=== PATIENT | male | born 1995 | race African-American/Black ===

== ENCOUNTER 2017-06-14 12:49 | Emergency (ER) | payer BC ==
[~2017-06-14] VITALS: Ht 185.4 cm; Wt 89.0 kg
[2017-06-14 12:53] VITALS: TEMP 36.9; Ht 185.4 cm; Wt 89.0 kg
[2017-06-14 13:55] VITALS: BP 145/74; PULSE 80; O2SAT 98
--- NOTE | 2017-06-14 16:21 | EMERGENCY ROOM VISIT NOTE ---
History First contact with patient: 12:55 Chief Complaint: STD MALE Stated Complaint: RED BUMPS ON HEAD OF PENIS/PARTNER MAY HAVE HERPES Nursing Triage Summary: no discharge has bumps on penis History of Present Illness The patient is a 22 year old male who presents to the Emergency Room with complaints of 3 red dots on the head of his penis. The patient reports that his girlfriend was just seen here for possible STI and herpes infection. The girlfriend was treated with unknown medications in the emergency department and by prescription. The patient became concerned that he also was infected, and comes to the emergency department for evaluation. In addition to his girlfriend , he also admits to having another partner. The other partner has been protected sex. The patient denies any urethral drainage. He reports no prior history of STIs, and has been tested before in the past at [facility]. He denies any current penile pain. Review of Systems 10 system review was performed and was negative except for pertinent positives and negatives as indicated in history of present illness Past Medical/Surgical History Medical Problems: (1) No significant past medical history Surgical Problems: (1) No history of previous surgery Family History Unremarkable Social History Smoking Status: Never Smoker Alcohol Use: occasionally Marital Status: single Occupation Status: employed Current/Historical Medications No Active Prescriptions or Reported Meds Physical Exam Vital Signs Date Time Temp Pulse Resp B/P (MAP) Pulse Ox O2 Delivery O2 Flow Rate FiO2 06/14/17 13:55 80 16 145/74 98 06/14/17 12:53 36.9 83 16 133/100 97 Physical Exam CONSTITUTIONAL: Healthy and well nourished. Alert and oriented X 3 with positive affect. HEENT: Normocephalic, atraumatic. Pupils equal, round and reactive. NECK: Full active range of motion without discomfort. RESPIRATORY: Clear to auscultation bilaterally with no wheezing, crackles, rhonchi or stridor. CARDIOVASCULAR: Regular rate and rhythm with no murmurs, rubs or gallops. GASTROINTESTINAL: Bowel sounds present in all quadrants. Abdomen is soft and nontender to palpation. GENITOURINARY: Examination shows a circumcised male with an ulcerated lesion of the anterior prepuce. No other glands lesions or urethral drainage noted. No testicular edema or tenderness to palpation. MUSCULOSKELETAL: Full range of motion of all joints without discomfort. INTEGUMENTARY: No rash or other significant dermatologic conditions noted. NEUROLOGIC: No focal neurologic deficits noted. Medical Decision & Procedures Laboratory Results Test 06/14/17 13:20 06/14/17 13:25 A urethral swab for GC and chlamydia was collected, along with an HSV swab of the penile lesion. ED Course Patient history and physical exam were performed. Nurse's notes were reviewed. Vital signs were reviewed, showing a blood pressure 133/100. The patient was encouraged to have his blood pressure rechecked with his next clinical appointment. The patient presents to the emergency department because he reports that his girlfriend is approximately being treated for STI and herpes. He does not know what treatment she received, or with testing was performed. He did call his girlfriend, Suyz Vila, who provide consent to discuss this issue over the phone with myself as well. The patient reports that she does not know what medication she was prescribed, but does report that she received other muscle injections for her treatment. The girlfriend did provide verbal consent for me to access her ED records. This was witnessed by the patient ( boyfriend) and nursing staff. At this point, the telephone conversation was concluded and the patient on up. When I looked up the patient's name in EMR, she did not have any record of being seen in the emergency department today as the boyfriend indicated. The boyfriend then thought that the patient may have been seen at [facility]. At this point, I suggested that we also confirmed, with testing, for HSV cultures, and urethral collection for GC/chlamydia. These were collected and ordered. The patient was advised that if either himself or his girlfriend test positive, both should be treated, including all sexual partners. The patient was advised that the ED would call him with any positive culture results. He is welcome to return to the emergency department for treatment, or may follow up with [facility] where he has been to before for testing. The patient currently does not have a PCP. The patient was happy with plan of care, and voiced understanding of all discharge instructions. Medical Decision Blood Pressure Screening Blood pressure disposition: Referred to PCP Impression Primary Impression: Penile lesion Departure Information Dispostion Home / Self-Care Condition GOOD Prescriptions No Active Prescriptions or Reported Meds Referrals No Doctor, Assigned (PCP) Forms HOME CARE DOCUMENTATION FORM, IMPORTANT VISIT INFORMATION Patient Instructions My [facility] Additional Instructions You have been tested for herpes, gonorrhea and chlamydia. Test results will take approximately 3 days to return. The emergency department will call you with any positive culture results. If you or your sexual partners test positive, everyone should be treated for the test that was positive. Follow-up with the [facility] as needed for further treatment and management, or you may return to the emergency department as needed.
[2017-06-18 06:54] LABS: CHLAMYDIA TRACH RNA*** NOT DETECTED (NOT DETECTED); GC (NEIS GONORRHOEAE)RNA** NOT DETECTED (NOT DETECTED)
[2017-06-19 12:16] LABS: HERPES SIMPLEX CULT SOURCE URINE-URETHRA; HERPES SIMPLEX VIRUS CULT ISOLATED (NOT ISOLATED)
[2017-06-19 13:29] LABS: HSVTYPE1REFLEX ONLY!DON'T ORDR ISOLATED (NOT ISOLATED); HSVTYPE2REFLEX ONLY!DON'T ORDR NOT ISOLATED (NOT ISOLATED)
--- NOTE | 2017-06-19 15:28 | Pharmacy Progress Note ---
ED Pharmacist Culture FollowUp Date of Service: Jun 19, 2017. Patient called today requesting the results of his HSV testing. 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 He stated his girlfriend had also tested positive for HSV-1 and is currently being treated. I spoke with Anastacia DUNCAN and received auth to call in Acyclovir 400mg PO TID x 7 days for this patient. The patient requested I call this Rx to [facility] on [address] [facility], which I did for him. I advised the patient that all sexual partners require testing and treatment if they do test positive.
== END 2017-06-14 13:55 | disposition home or self-care (01) ==
LOC: C.EDB 12:51 → C.EDD 13:55
DX: N50.9 Disorder of male genital organs, unspecified (principal)